=== PATIENT | male | born 1970 | race Caucasian/White ===

== ENCOUNTER → 2020-04-08 08:05 | Outpatient (CLI) | payer OTHER, SELFPAY ==
[2020-04-08 12:58] LABS: ALB/GLOB Ratio 1.2 RATIO (0.9-2.4); AST(SGOT) 15 U/L (15-37); Alanine Aminotransfer ALT/SGPT 45 U/L (16-61); Albumin, Serum 3.9 g/dL (3.2-5.0); Alkaline Phosphatase 76 U/L (45-117); Anion Gap 5 (5-15); BUN 11 mg/dL (7-18); BUN/Creat Ratio 12.4 RATIO (10-20); Calcium,Total 8.9 mg/dL (8.5-10.1); Chloride 105 mmol/L (98-107); Cholesterol 197 mg/dL (200); Creatinine, Serum 0.89 mg/dL (0.70-1.30); EST Glomerular Filtration Rate 96 mL/min (>60); Est Glom Filt Rate - Afr Amer 116 mL/min (>60); Globulin 3.3 g/dL (2.2-4.2); Glucose 88 mg/dL (74-106); High Density Lipoprotein 46 mg/dL; Potassium 4.1 mmol/L (3.5-5.1); Protein, Total 7.2 g/dL (6.4-8.2); Sodium Level 138 mmol/L (136-145); Triglycerides 174 mg/dL; Very Low Density Lipoprotein 35 mg/dL (5-40)
== END ==
PROVIDERS: Visit Provider Family Medicine
DX: I10 Essential (primary) hypertension (principal)
CPT/HCPCS: 36415; 80053; 80061

== ENCOUNTER 2020-04-22 07:45 | Day surgery (SDC) | payer OTHER, SELFPAY ==
[2020-04-08 10:26] VITALS: BMI 33.3
[2020-04-22] VITALS (12 sets, daily range): BP systolic 109–139; BP diastolic 72–101; PULSE 71–97; RESP 16; TEMP 36.3–36.7; O2SAT 92–98; BMI 32.2
[2020-04-22] MEDS: Lactated Ringers 1,000 ML 100 ML IV (08:32)
--- NOTE | 2020-04-22 08:53 | H&P.OPEN ---
History of Present Illness Date of Admission: 04/22/20 The patient is a 49 year old M presents for screening colonoscopy. Patient's uncle has have had various cancers x3 one did have colon cancer and all were less than age 50. Patient denies ever having a colonoscopy. Patient has daily bowel movements occasional blood small amount of bright red with wiping and occasionally in the toilet unsure if he has hemorrhoids, but does admit that they usually occur with hard stools. Patient states his stools are usually soft. Patient denies any chronic abdominal pain/nausea/vomiting/reflux. Denies any immediate family history of colon cancer. Past Medical/Surgical History - Planned Operation Planned Operative Procedure/s: COLONOSCOPY Date of Operative Procedure: 04/22/20 Permit Signed: Yes S.O.S: No Is This Patient Having a Total Joint: No - Previous Hospitalizations/Surgeries HX Hospitalizations: No HX of Surgeries: CYST REMOVED FROM UPPER NECK. CARLOS A MENISCUS Any Problems With Anesthesia: No You/Your Family Experience Fever (Hyperthermia) With Anes: No Cholinesterase deficiency: No - Cardiovascular Hx Chest Pain within Last 2 months: No Hx of Irregular Heartbeat and/or Afib: No Hx Heart Attack: No Hx Congestive Heart Failure: No Hx Rheumatic Fever: No Hx Hypertension: Yes - ON MED, STARTED LAST WEEK Hx Internal Defibrillator: No Hx Pacemaker: No Hx Cardiac Catheterization: No Hx Cardiac Surgery/Stents/Etc.: No Hx Stress Test: No HX Edema: No Hx Pain in Legs when Walking/Leg Cramps: No - Respiratory Chronic Cough: No HX of Shortness of Breath: No Hoarseness: No Hx Chronic Obstructive Pulmonary Disease (COPD): No Hx Asthma: No Hx Emphysema: No Hx Sleep Apnea: No Hx Oxygen Use at Home: No Hx Respiratory Tract Infection/Cold (presently): No Do You Snore Loudly (louder than talking or can be heard): Yes Do You Often Feel Tired/ Fatigued/ Sleepy Dring Daytime?: No Has Anyone Observed You Stop Breathing During Sleep?: No Result (for STOP score): Positive Hx Smoking: No Smoking Status: Never smoker - Gastrointestinal Hx Gastroesophageal Reflux: No Hx Gastrointestinal Disorders: No Hx Gastrointestinal Bleed: No Hx Ulcer: No Hx Hiatal Hernia: No Difficulty Chewing/Swallowing: No Recent Onset of Swallowing Problems: No Special diet followed at home: No Hx Unplanned Weight Loss of 20#: No HX Unplanned Weight Gain of 20#: No - Neurological Hx Seizures: No HX Syncope/Blackout Spells/Unconsciousness: No Hx CVA/Stroke: No Hx Transient Ischemic Attacks (TIA): No Hx Multiple Sclerosis: No Hx Parkinson's Disease: No Hx Head/Neck Injury: No Hx Headaches: No Hx Back Injury/Pain: No Recent Onset of Speech Difficulty: No Restless Legs: No Does patient have nerve stimulator: No - Blood Disorder Hx Leukemia: No Bleeding Tendencies: No Hx Deep Vein Thrombosis: No Hx High Cholesterol: Yes - DIET CONTROLLED Blood Transmitted Disease: No Hx Hepatitis: No Hx Cirrhosis: No Hx Anemia: No Hx Blood Disorders: No - Genitourinary Hx Renal Disease: No - Musculoskeletal Hx Arthritis: No Hx Rheumatoid Arthritis: No Hx Gout: No Recent Onset of an Orthopedic Problem: No - Endocrine Hx Diabetes: No Thyroid Disease: No Hx Steroid Therapy: No - Psycho/Social Hx Substance Use: No Hx Alcohol Use: No Hx Anxiety: No Hx Depression: No Mental Illness: No Hx Dementia: No - Miscellaneous Hx Cancer: No Recent Exposure to Contagious Disease: No Active MRSA: No Hx of C-Diff: No Any Loose Teeth: No Allergies No Known Allergies Allergy (Verified 04/14/20 14:03) - Discharge Is Pt Admitted From a Senior Living, or a Detention: No Who Could Help: - Physical Exam Vitals/I&O's: Vital Signs Temp Pulse Resp BP Pulse Ox 97.3 F L 94 16 139/101 H 98 04/22/20 08:24 04/22/20 08:24 04/22/20 08:24 04/22/20 08:24 04/22/20 08:24 Oxygen Delivery Method Room Air Weight: 224 lb 13.944 oz Body Mass Index (BMI) 32.2 General: Alert, Oriented x3, Cooperative, No apparent distress HEENT: Atraumatic Lungs: Normal air movement Cardiovascular: Regular rate Abdomen: Soft, Non Tender, Non-Distended Extremities: No clubbing, No cyanosis, No edema Neurological: Cranial nerves II-XII grossly intact Psych/Mental Status: Normal Affect Microbiology Past 72 Hours 04/21/20 11:29 Interface Orders SARS-CoV-2 Antigen (Rapid) - Final Current Medications Lactated Ringer's () 1,000 mls @ 100 mls/hr IV .Q10H ERNESTINE Last Admin: 04/22/20 08:32 Dose: 100 mls/hr Documented by: Assessment/Plan 49-year-old male for screening for colon cancer Procedure Criteria Procedure Type: Elective COVID Risk Discussion: The surgeon/proceduralist and patient have discussed in detail the risk of exposure to and/or potential harm posed by the COVID-19 virus with having a surgery/procedure at this time versus the risk of delaying the surgery/procedure. It is not possible to know either the risk of delaying the surgery or procedure or chance of getting an infection with perfect accuracy, but a joint decision was made between the patient and the surgeon/proceduralist to proceed at this time with the scheduled surgery/procedure as indicated on the consent form. Surgery Risks - Colonoscopy I discussed with the patient the risks of the procedure: Yes Risks Include but are not Limited To: Risks include but are not limited to: Bleeding, perforation requiring further surgery, inability to complete colonoscopy requiring barium enema.
--- NOTE | 2020-04-22 09:00 | COLBX_PTH ---
PATIENT: ALO BALBUENA LOC: EN U#:[id number] AGE/SX: 49/M ROOM: RE04/22/[address]: Dr. Eve Elmore MD : 1970 BED: DIS: 04/22/2020 SPEC #: [id number] RECD: 04/22/20 11:19 STATUS: ISABELL PRADIP #: [id number] HAYLEY: 04/22/20 09:[address]: Eve Elmore DEPT: SURGICAL PATHOLOGY RECD BY: Susana Chapa ENTERED: 04/22/20 12:00 SP TYPE: COLON BX OTHR DR: Dr. Shay Clark, DO Tissues: Rectum, NOS Procedures: Surgery Specimen Level IV HEADER OPERATION: Colonoscopy - open access (MAC) PRE-OP DIAGNOSIS: Screening colonoscopy TISSUE SUBMITTED: Rectal polyp MICROSCOPIC DIAGNOSIS Rectal polyp, biopsy: Fragments of tubular adenoma. AM:robert 04/23/2020 MICROSCOPIC DESCRIPTION Slides are reviewed. GROSS DESCRIPTION Received in fixative is one container labeled with the patient's name and designated rectal polyp. The specimen consists of multiple irregular fragments of light johnson soft tissue that in aggregate measure 1.2 x 1 x 0.1 cm. The specimen is totally submitted in one cassette. / AM:robert 04/22/20 TC:5 CPT: 06954
--- NOTE | 2020-04-22 09:36 | OP.COLON_ITS ---
Patient Name: Hosea Walker Procedure Date: 04/22/2020 8:43 AM Date of : 1970 Age: 49 Procedure: Colonoscopy Indications: Screening for colorectal malignant neoplasm Providers: Eve Elmore MD Referring MD: Eve Elmore MD Medicines: Monitored Anesthesia Care Patient Profile: This is a 49 year old male. Last Colonoscopy: none. The patient's first colonoscopy is today. Complications: No immediate complications. Procedure: Pre-Anesthesia Assessment: - Prior to the procedure, a History and Physical was performed, and patient medications and allergies were reviewed. The patient's tolerance of previous anesthesia was also reviewed. The risks and benefits of the procedure and the sedation options and risks were discussed with the patient. All questions were answered, and informed consent was obtained. Prior Anticoagulants: The patient has taken no previous anticoagulant or antiplatelet agents. ASA Grade Assessment: Per anesthesia. After reviewing the risks and benefits, the patient was deemed in satisfactory condition to undergo the procedure. After I obtained informed consent, the scope was passed under direct vision. Throughout the procedure, the patient's blood pressure, pulse, and oxygen saturations were monitored continuously. The colonoscope was introduced through the anus and advanced to the cecum, identified by the appendiceal orifice, ileocecal valve and palpation. The colonoscopy was performed without difficulty. The patient tolerated the procedure well. The quality of the bowel preparation was good. Scope In: 9:04:12 AM Scope Out: 9:25:50 AM Total Procedure Duration Time 0 hours 21 minutes 38 seconds Findings: Hemorrhoids were found on perianal exam. A 5 mm polyp was found in the rectum. The polyp was semi-pedunculated. The polyp was removed with a hot snare. Resection and retrieval were complete. Non-bleeding internal hemorrhoids were found. The hemorrhoids were Grade I (internal hemorrhoids that do not prolapse). A few small-mouthed diverticula were found in the sigmoid colon. Impression: - Hemorrhoids found on perianal exam. - One 5 mm polyp in the rectum, removed with a hot snare. Resected and retrieved. - Non-bleeding internal hemorrhoids. - Diverticulosis in the sigmoid colon. Recommendation: - Discharge patient to home. - High fiber diet. - Continue present medications. - Await pathology results. - Repeat colonoscopy in 3 - 5 years for surveillance based on pathology results. Procedure Code(s): --- Professional --- 99425, PT, Colonoscopy, flexible; with removal of tumor(s), polyp(s), or other lesion(s) by snare technique Diagnosis Code(s): --- Professional --- Z12.11, Encounter for screening for malignant neoplasm of colon K64.0, First degree hemorrhoids K62.1, Rectal polyp K57.30, Diverticulosis of large intestine without perforation or abscess without bleeding CPT copyright 2017 [employer]. All rights reserved. The codes documented in this report are preliminary and upon global consumer sector vice president review may be revised to meet current compliance requirements. MD Eve Lomeli MD 04/22/2020 9:35:55 AM This report has been signed electronically. Number of Addenda: 0 Note Initiated On: 04/22/2020 8:43 AM
--- NOTE | 2020-04-22 09:36 | OP.CCLET_ITS ---
04/22/2020 Shay Clark Re : Colonoscopy procedure for Hosea Walker Dear Dr. Clark This procedure was performed on Wednesday, April 22, 2020. My impressions and recommendations are as follows: Impressions : - Hemorrhoids found on perianal exam. - One 5 mm polyp in the rectum, removed with a hot snare. Resected and retrieved. - Non-bleeding internal hemorrhoids. - Diverticulosis in the sigmoid colon. Recommendations : - Discharge patient to home. - High fiber diet. - Continue present medications. - Await pathology results. - Repeat colonoscopy in 3 - 5 years for surveillance based on pathology results. My findings are described in the full procedure note, which is enclosed. If I can be of further assistance, please feel free to contact me at Doctor phone number(s): , Work: . Sincerely, MD Eve Lomeli MD 04/22/2020 9:35:55 AM This report has been signed electronically.
[2020-04-22] MEDS: BENZOCAINE/MENTHOL 1 LOZENGE MUCOUS MEM (10:48)
== END 2020-04-22 11:13 | disposition home or self-care (01) ==
LOC: EN 07:45 → AC 07:45
PROVIDERS: PCP Family Medicine; Referring Provider Family Medicine; Visit Provider Surgery
PROC: 0DJD8ZZ Inspection of Lower Intestinal Tract, Via Natural or Artificial Opening Endoscopic (ICD-10-PCS; CPT 45378; principal; 2020-04-22 08:55)
DX: Z12.11 Encounter for screening for malignant neoplasm of colon (principal); D12.8 Benign neoplasm of rectum; K57.30 Diverticulosis of large intestine without perforation or abscess without bleeding; K64.0 First degree hemorrhoids; I10 Essential (primary) hypertension; Z79.899 Other long term (current) drug therapy; Z20.822 Contact with and (suspected) exposure to COVID-19
CPT/HCPCS: 45380; 87426; 88305; C9803; J7120; J2405

== ENCOUNTER 2020-04-22 13:51 | Observation (INO) | payer OTHER, SELFPAY ==
[2020-04-22 08:24] VITALS: BMI 32.2
[2020-04-22 13:53] VITALS: BP 155/93; PULSE 122; RESP 18; TEMP 37.1; O2SAT 96; BMI 32.2
--- NOTE | 2020-04-22 14:06 | ED.DCSUM_ITS ---
History of Present Illness Chief Complaint: Other, Pain/Inj Informant: Patient Narrative: Patient is a 49-year-old male with a past medical history of hypertension who presents emergency department for throat pain and swelling. He had a colonoscopy performed earlier today. Apparently they suctioned out his throat and that the back of his throat. He has been having pain since. He describes very severe pain when trying to swallow and has not been able to eat or drink. He has not tried taking anything for this as he cannot swallow anything. He has been having a lot of mucus he is bringing up. He has been spitting his secretions out.. He denies any shortness of breath. No chest pain. No fevers or chills. He denies any abdominal pain or nausea/vomiting. Past Medical History - Allergies and Home Meds Allergies/Adverse Reactions: Allergies No Known Allergies Allergy (Verified 04/22/20 13:52) Prior records reviewed: Yes Past Medical History: - - Hypertension Surgical History: noncontributory Smoking Status: Never smoker Review of Systems All systems negative except as indicated General: Denies: Chills, Fever, Sweats Eyes: Denies: Visual changes - bilaterally, Diplopia ENT: Reports: Sore throat. Denies: Rhinorrhea Cardiovascular: Denies: Chest pain, Palpitations Respiratory: Denies: Dyspnea, Cough, Dyspnea on exertion Gastrointestinal: Denies: Abdominal pain, Nausea, Vomiting Musculoskeletal: Denies: Back pain, Extremity Pain Skin: Denies: Rash, Wounds Neurological: Denies: Headache, Weakness, Numbness Allergy: Reports: Swelling of the mouth. Denies: Swelling of the tongue Physical Exam Vital Signs/Narrative: Vital Signs Temp Pulse Resp BP Pulse Ox 04/22/20 13:53 98.7 F 122 H 18 155/93 H 96 Inital Vital Signs reviewed: Yes General: Well nourished, Well developed, No Acute Distress, - - He does have a raspy voice but nonmuffled. Head: Normocephalic, Atraumatic Eyes: Perrl, EOMI ENT: Moist mucous membranes, No rhinorrhea, - - There is some swelling to posterior oropharynx. Uvula is midline. Some mild petechiae around that area. No active bleeding. No stridor present. No Trace's present. Neck: Supple, Nontender, No lymphadenopathy Cardiovascular: Regular rate, Regular rhythm, No murmurs Respiratory: No distress, CTA bilaterally, Chest nontender Abdomen: Soft, Nontender, Nondistended, Normal bowel sounds Back: Nontender, Normal Inspection Extremities: Nontender, No edema Skin: Normal color, No rash Neurological: Alert, Oriented x3, Cranial nerves II-XII grossly intact, Normal Strength, Normal Sensation Psychological: Normal affect, Normal Mood Diagnostic/Tx/Re-eval - Medical Decision Making Patient presents to the emergency department for sore throat after procedure this morning. I believe that he has a traumatic uveitis. Was sent in for Decadron treatment. Did discuss this with the patient and will try this. He is given a GI cocktail for the numbing effect. He is in no respiratory distress. No airway compromise. Patient spitting his saliva into emesis bag. Physical exam is benign with just mild swelling of the posterior pharynx. Patient refused to swallow a GI cocktail so Chloraseptic spray was used. He was not able to swallow the Decadron so this was given IV. Patient still unable to swallow despite treatment so a CT scan of the soft tissues of the neck were obtained. This does show edema but no active hemorrhage or large hematoma. Patient has been tachycardic which could relate to his dehydration with a bowel prep earlier and unable to drink now. He has been bolused 2 L normal saline and his heart rate has been fluid responsive. Will bring him into the hospital as he still unable to tolerate orally. His general surgeon was contacted who was willing to accept the patient. He has been stable throughout ED stay. He is agreeable with this plan. ED Disposition - Plan for ED Patient: Disposition: Acute Care Hospital [facility] Diagnosis: Odynophagia, Uvulitis
[2020-04-22 14:13] VITALS: BP 156/87; PULSE 115; RESP 16; O2SAT 98
[2020-04-22] MEDS: Phenol/Sodium Phenolate 180ML 5 SPRAY MM (14:28)
--- NOTE | 2020-04-22 14:56 | ED.RN ---
medication for patient have been ordered by mouth. pt continues to refuse to swallow or take oral medications. dr Rasmussen informed. no further orders at this time. chely melgar, rn [phone]
--- NOTE | 2020-04-22 15:01 | CT_ITS ---
STUDY: CT SOFT TISSUE NECK WITH CONTRAST REASON FOR EXAM: Male, 49 years old. during colonoscopy pt had trauma from rapid suction, concern for uvula injury, painful swallowing, spitting secretions RADIATION DOSAGE (If Supplied By Facility): CTDIvol = ( 18.66 ) mGy, DLP = ( 629.57 ) mGycm TECHNIQUE: The patient was scanned in a multi-detector CT scanner. High resolution transaxial imaging was performed following intravenous administration of IV 75mL Isovue-370. Sagittal and coronal images were reconstructed. Individualized dose optimization techniques were used for this CT. COMPARISON: None. FINDINGS: Normal bilateral parotid glands. Normal bilateral supplies packer spaces. Normal bilateral parapharyngeal spaces. Normal bilateral carotid spaces. Normal bilateral submandibular glands and spaces. There is irregularity of the torus tubarius and blunting of the left fossa of Rosenmuller. This may be due to secretions, recent trauma, or neoplasm. Nasopharynx is otherwise unremarkable. Normal retropharyngeal space. Normal perivertebral space. Normal visualized bilateral faucial tonsils. The visualized tongue, tongue base and oropharynx are normal. Specifically, the uvula is unremarkable. The visualized cervical lymph nodes (levels I-) are within normal size limits, and maintain normal morphology. There is no demonstrated solid or cystic mass lesion. There is no abnormal contrast enhancement. There is edema in the left lateral wall of the hypopharynx involving the posterolateral epiglottis. The pre-epiglottic and paraglottic adipose spaces are normal. Normal visualized bilateral piriform sinuses, aryepiglottic folds, vocal cords, and arytenoid-cricoid articulations. Normal subglottic trachea. Normal bilateral lobes of the thyroid gland. Normal visualized pulmonary apices. Trace mucosal thickening in the left maxillary sinus. Normal visualized cervical spine. CT/Soft Tissue Neck WITH Contrast IMPRESSION: 1. Asymmetry of the left torus tubarius and blunting of the fossa of Rosenmuller. Differential considerations noted above. 2. Edema of the left hypopharynx, possibly related to traumatic intubation or suction. Electronically Signed: Arlin Layton MD at 19:02 EST Tel , Service support ,
[2020-04-22 15:13] VITALS: BP 146/95; PULSE 116; RESP 16; O2SAT 96
[2020-04-22] MEDS: dexAMETHasone 10 MG/ML Vial 8 MG IV (16:17)
[2020-04-22 16:56] LABS: Mean Platelet Vol. 9.6 fl (6.2-12.0); NRBC Flagged by Analyzer 0 % (0-5)
[2020-04-22 17:20] LABS: Anion Gap 5 (5-15); BUN 9 mg/dL (7-18); BUN/Creat Ratio 9.1 RATIO (10-20); Calcium,Total 8.8 mg/dL (8.5-10.1); Chloride 105 mmol/L (98-107); Creatinine, Serum 0.99 mg/dL (0.70-1.30); EST Glomerular Filtration Rate 85 mL/min (>60); Est Glom Filt Rate - Afr Amer 103 mL/min (>60); Estimated Creatinine Clearance 92.17 ml/min; Glucose 107 mg/dL (74-106); Sodium Level 137 mmol/L (136-145)
[2020-04-22 17:53] LABS: Hematocrit 48.7 % (40-54); Hemoglobin 16.6 g/dL (13.0-16.5); Mean Corp Hgb Conc 34.1 g/dL (32-36); Mean Corpuscular Volume 90.9 fL (80-94); RBC Distribution Width CV 11.9 % (11.6-14.6); RBC Distribution Width SD 39.7 fl (35.1-43.9); Red Blood Count 5.36 M/mm3 (4.6-6.2)
--- NOTE | 2020-04-22 17:53 | RAD_ITS ---
STUDY: X-RAY CHEST REASON FOR EXAM: Male, 49 years old. PT REPORT HAVING A LOWER GI SCOPE DONE EARLIER TODAY. HAVING INCREASING DIFFICULTY SWALLOWING. TECHNIQUE: Single AP portable view of the chest. COMPARISON: None. FINDINGS: Low lung volumes. The lungs are clear. There is no demonstrated pleural abnormality. Normal size heart. Normal mediastinum and stephanie. Normal visualized pulmonary arteries. Normal visualized aortic arch and descending thoracic aorta. Normal visualized thoracic spine. Normal visualized ribs, clavicles, and shoulders. There is no demonstrated abnormality of the visualized soft tissue structures of the upper abdomen. RAD/Chest 1 View (Portable) IMPRESSION: Normal x-ray examination of the chest. Electronically Signed: Arlin Layton MD at 18:29 EST Tel , Service support ,
[2020-04-22 17:54] LABS: Basophil% 0.3 % (0-1); Eosinophils% 2.1 % (0-5); Lymphocyte % 4.1 % (19-41); Monocyte% 5.1 % (0-10); Neutrophil % 88.1 % (47-70); Platelet Count 288 K/mm3 (150-450)
[2020-04-22 17:55] LABS: Absolute Lymphocyte Count 0.86 X10^3/uL (0.83-4.51); Absolute Neutrophil Count 18.5 X10^3/uL (2.0-7.7); Basophil# 0.06 X10^3/uL; Eosinophil# 0.44 X10^3/uL; Lymphocyte # 0.86 X10^3/ul (4.0); Monocyte# 1.07 X10^3/uL
[2020-04-22 18:18] VITALS: BP 148/96; PULSE 122; RESP 20; O2SAT 94
--- NOTE | 2020-04-22 19:40 | HP.PCM_ITS ---
History of Present Illness Date of Admission: 04/22/20 The patient is a 49 year old M presented to the ER due to dysphagia. Pt had a colonoscopy this AM and did have his mouth suctioned during the procedure due to coughing. After the case, pt c/o dysphagia but was able to swallow liquids when he left-but exam did reveal trauma to posterior pharynx and swelling of uvula. However, pt called office as he states he was unable to swallow liquids or saliva, so he was asked to go to ER. Pt was initially tachy but did respond to fluids as he was likely dehydrated from colon prep. CT neck show some edema in left posterior pharynx. Pt did get decadron 8mg IV in ER; patient has not had any signs of airway compromise. Past Medical History Past Medical History (Chronic Problems): Chronic Problems (Last Reviewed 04/08/20 @ 11:[address] Shay Clark DO) Hypertension (Chronic) Allergies No Known Allergies Allergy (Verified 04/22/20 13:52) Home Medications: Ambulatory Orders Medication Instructions Recorded ascorbate calcium (vitamin C) 500 500 mg PO DAILY 04/08/20 mg tablet multivitamin 1 tab PO DAILY 04/08/20 Lisinopril 20 mg PO DAILY 04/22/20 Surgical History: Surgical History (Last Reviewed 04/08/20 @ 11:[address] Shay Clark DO) H/O knee surgery Z98.890 Surgical History: noncontributory Smoking Status: Never smoker Tobacco Use: Non-smoker VTE Information - Inpt Only VTE Present on Admission: Yes VTE Mechan Device Prophylaxis: SCD's Patient Problems: Active and Suspected Problems (Last Reviewed 04/08/20 @ 11:[address] Shay Clark DO) Odynophagia (Acute) Uvulitis (Acute) - Physical Exam Vitals/I&O's: Vital Signs Temp Pulse Resp BP Pulse Ox 98.7 F 122 H 20 H 148/96 H 94 04/22/20 13:53 04/22/20 18:18 04/22/20 18:18 04/22/20 18:18 04/22/20 18:18 Oxygen Delivery Method Room Air Weight: 224 lb 10.417 oz Body Mass Index (BMI) 32.2 General: Alert, Oriented x3, Cooperative, No apparent distress Oral: - - Edema to the uvula and some erythema to the posterior pharynx no signs of any airway compromise Lungs: Normal air movement Cardiovascular: Regular rate Abdomen: Soft, Non Tender, Non-Distended Extremities: No clubbing, No cyanosis, No edema Neurological: Cranial nerves II-XII grossly intact Psych/Mental Status: Normal Affect Laboratory Results 04/22/20 15:42: WBC Cancelled, Corrected WBC Cancelled, RBC Cancelled, Hgb Cancelled, Hct Cancelled, MCV Cancelled, MCH Cancelled, MCHC Cancelled, RDW Std Deviation Cancelled, RDW Coeff of Cameron Cancelled, Plt Count Cancelled, MPV Cancelled, Immature Gran % (Auto) Cancelled, Neut % (Auto) Cancelled, Lymph % (Auto) Cancelled, [place] % (Auto) Cancelled, Eos % (Auto) Cancelled, Baso % (Auto) Cancelled, Absolute Neuts (auto) Cancelled, Absolute Lymphs (auto) Cancelled, Total Counted Cancelled, Neutrophils % (Manual) Cancelled, Band Neutrophils % Cancelled, Lymphocytes % (Manual) Cancelled, Monocytes % (Manual) Cancelled, Eosinophils % (Manual) Cancelled, Basophils % (Manual) Cancelled, Metamyelocytes % Cancelled, Myelocytes % Cancelled, Promyelocytes % Cancelled, Blast Cells % Cancelled, Plasma Cell % (Manual) Cancelled, Other Cells % Cancelled, Nucleated RBC % Cancelled, Nucleated RBCs/100 WBC Cancelled, Differential Comment Cancelled, Diff Path Review Cancelled, Hypersegmented Neuts Cancelled, Atypical Lymphocytes Cancelled, Reactive Lymphocytes Cancelled, Smudge Cells Cancelled, Toxic Granulation Cancelled, Toxic Vacuolation Cancelled, Dohle Bodies Cancelled, [place] Cancelled, Platelet Estimate Cancelled, Plt Morphology Comment Cancelled, RBC Morphology Cancelled, Polychromasia Cancelled, Hypochromasia Cancelled, Poikilocytosis Cancelled, Basophilic Stippling Cancelled, Anisocytosis Cancelled, Microcytosis Cancelled, Macrocytosis Cancelled, Spherocytes Cancelled, Sickle Cells Cancelled, Target Cells Cancelled, Tear Drop Cells Cancelled, Ovalocytes Cancelled, Stomatocytes Cancelled, [place] Bodies Cancelled, Valentina Cells Cancelled, Bite Cells Cancelled, Crenated Cell Cancelled, Acanthocytes (Spur) Cancelled, Rouleaux Cancelled, Schistocytes Cancelled 04/22/20 15:42: Sodium Cancelled, Potassium Cancelled, Chloride Cancelled, Carbon Dioxide Cancelled, Anion Gap Cancelled, BUN Cancelled, Creatinine Cancelled, Estim Creat Clear Calc Cancelled, Est GFR (MDRD) Af Amer Cancelled, Est GFR (MDRD) Non-Af Cancelled, BUN/Creatinine Ratio Cancelled, Glucose Cancelled, Calcium Cancelled 04/22/20 16:45: Sodium 137, Potassium 4.0, Chloride 105, Carbon Dioxide 27.0, Anion Gap 5, BUN 9, Creatinine 0.99, Estim Creat Clear Calc 92.17, Est GFR (MDRD) Af Amer 103, Est GFR (MDRD) Non-Af 85, BUN/Creatinine Ratio 9.1 L, Glucose 107 H, Calcium 8.8 04/22/20 16:45: WBC 21.0 H, RBC 5.36, Hgb 16.6 H, Hct 48.7, MCV 90.9, MCH 31.0, MCHC 34.1, RDW Std Deviation 39.7, RDW Coeff of [place] 11.9, Plt Count 288, MPV 9.6, Immature Gran % (Auto) 0.300, Neut % (Auto) 88.1 H, Lymph % (Auto) 4.1 L, [place] % (Auto) 5.1, Eos % (Auto) 2.1, Baso % (Auto) 0.3, Absolute Neuts (auto) 18.5 H, Absolute Lymphs (auto) 0.86, Nucleated RBC % 0 Current Medications Sodium Chloride () 1,000 mls @ 999 mls/hr IV .Q1H1M ONE Stop: 04/22/20 20:27 Phenol/Menthol (Phenol/Sodium Phenolate 180ml) 5 spray MM Q2H PRN PRN PRN Reason: Pain/Inflammation Last Admin: 04/22/20 14:28 Dose: 5 spray Documented by: Assessment/Plan All Active Problems (Last Reviewed 04/08/20 @ 11:[address] Shay Clark, DO) Odynophagia (Acute) Uvulitis (Acute) 49 y/o M with dysphagia 2/2 traumatic uvulitis 1. will continue IVF 2. clears as tolerated 3. try IV pepcid, cepacol 4. leukocytosis- blood drawn after IV decadron was given--could be due to steriods. Eve Elmore M.D. Pager: [phone] [facility] [address] [place] [address], [address] [place] [address] Office: [phone]
[2020-04-22] MEDS: Morphine 4 MG/ML Syringe IV (19:51)
[2020-04-22] MEDS: 0.9% Normal Saline 1,000 ML 999 ML IV (19:51)
[2020-04-22 19:53] VITALS: BP 131/72; PULSE 126; RESP 18; TEMP 37; O2SAT 92
[2020-04-22 19:59] VITALS: BMI 32.2
[2020-04-22 21:09] VITALS: BMI 32.0
[2020-04-22 21:26] VITALS: BP 135/91; PULSE 105; RESP 20; TEMP 36.9; O2SAT 94
[2020-04-22] MEDS: Lactated Ringers 1,000 ML 999 ML IV (21:37)
[2020-04-22] MEDS: Famotidine 200 MG/20 ML MDV 20 MG in 0.9% Normal Saline (Pres. free 8 ML 300 MG IV (22:12)
[2020-04-22] MEDS: 0.9% Saline Lock 10 ML Syringe IV (22:13)
[2020-04-22] MEDS: Lactated Ringers 1,000 ML 150 ML IV (22:52)
[2020-04-23 01:26] VITALS: BP 100/56; PULSE 78; RESP 16; TEMP 36.7; O2SAT 93
[2020-04-23] MEDS: Phenol/Sodium Phenolate 180ML 3 SPRAY MM (05:30)
[2020-04-23] MEDS: Lactated Ringers 1,000 ML 150 ML IV (05:33)
[2020-04-23 07:06] VITALS: BP 107/75; PULSE 90; RESP 16; TEMP 36.8; O2SAT 94
--- NOTE | 2020-04-23 08:30 | PN.SURG_ITS ---
Patient Problems: Active and Suspected Problems (Last Reviewed 04/08/20 @ 11:[address] Shay Clark, DO) Odynophagia (Acute) Uvulitis (Acute) Subjective: Patient states he is able to swallow this morning able to drink liquids with no issue just feels like a sore throat. Patient meant yesterday may have had some anxiety along with the uveitis. - Physical Exam Vitals/I&O's: Vital Signs Temp Pulse Resp BP Pulse Ox 98.3 F 90 16 107/75 94 04/23/20 07:06 04/23/20 07:06 04/23/20 07:06 04/23/20 07:06 04/23/20 07:06 Oxygen Delivery Method Room Air Weight: 223 lb 5.252 oz Body Mass Index (BMI) 32.0 Intake and Output for Last 24 Hours 04/21/20 04/22/20 04/23/20 23:59 23:59 23:59 Intake Total 2009 1000 / 1000 Balance 2009 1000 / 1000 General: Alert, Oriented x3, Cooperative, No apparent distress Oral: - - Start some erythema to the posterior pharynx Abdomen: Soft, Non Tender, Non-Distended Laboratory Results 04/22/20 15:42: WBC Cancelled, Corrected WBC Cancelled, RBC Cancelled, Hgb Cancelled, Hct Cancelled, MCV Cancelled, MCH Cancelled, MCHC Cancelled, RDW Std Deviation Cancelled, RDW Coeff of Cameron Cancelled, Plt Count Cancelled, MPV Cancelled, Immature Gran % (Auto) Cancelled, Neut % (Auto) Cancelled, Lymph % (Auto) Cancelled, [place] % (Auto) Cancelled, Eos % (Auto) Cancelled, Baso % (Auto) Cancelled, Absolute Neuts (auto) Cancelled, Absolute Lymphs (auto) Cancelled, Total Counted Cancelled, Neutrophils % (Manual) Cancelled, Band Neutrophils % Cancelled, Lymphocytes % (Manual) Cancelled, Monocytes % (Manual) Cancelled, Eosinophils % (Manual) Cancelled, Basophils % (Manual) Cancelled, Metamyelocytes % Cancelled, Myelocytes % Cancelled, Promyelocytes % Cancelled, Blast Cells % Cancelled, Plasma Cell % (Manual) Cancelled, Other Cells % Cancelled, Nucleated RBC % Cancelled, Nucleated RBCs/100 WBC Cancelled, Differential Comment Cancelled, Diff Path Review Cancelled, Hypersegmented Neuts Cancelled, Atypical Lymphocytes Cancelled, Reactive Lymphocytes Cancelled, Smudge Cells Cancelled, Toxic Granulation Cancelled, Toxic Vacuolation Cancelled, Dohle Bodies Cancelled, [place] Cancelled, Platelet Estimate Cancelled, Plt Morphology Com ment Cancelled, RBC Morphology Cancelled, Polychromasia Cancelled, Hypochromasia Cancelled, Poikilocytosis Cancelled, Basophilic Stippling Cancelled, Anisocytosis Cancelled, Microcytosis Cancelled, Macrocytosis Cancelled, Spherocytes Cancelled, Sickle Cells Cancelled, Target Cells Cancelled, Tear Drop Cells Cancelled, Ovalocytes Cancelled, Stomatocytes Cancelled, [place] Bodies Cancelled, Valentina Cells Cancelled, Bite Cells Cancelled, Crenated Cell Cancelled, Acanthocytes (Spur) Cancelled, Rouleaux Cancelled, Schistocytes Cancelled 04/22/20 15:42: Sodium Cancelled, Potassium Cancelled, Chloride Cancelled, Carbon Dioxide Cancelled, Anion Gap Cancelled, BUN Cancelled, Creatinine Cancelled, Estim Creat Clear Calc Cancelled, Est GFR (MDRD) Af Amer Cancelled, Est GFR (MDRD) Non-Af Cancelled, BUN/Creatinine Ratio Cancelled, Glucose Cancelled, Calcium Cancelled 04/22/20 16:45: Sodium 137, Potassium 4.0, Chloride 105, Carbon Dioxide 27.0, Anion Gap 5, BUN 9, Creatinine 0.99, Estim Creat Clear Calc 92.17, Est GFR (MDRD) Af Amer 103, Est GFR (MDRD) Non-Af 85, BUN/Creatinine Ratio 9.1 L, Glucose 107 H, Calcium 8.8 04/22/20 16:45: WBC 21.0 H, RBC 5.36, Hgb 16.6 H, Hct 48.7, MCV 90.9, MCH 31.0, MCHC 34.1, RDW Std Deviation 39.7, RDW Coeff of Cameron 11.9, Plt Count 288, MPV 9.6, Immature Gran % (Auto) 0.300, Neut % (Auto) 88.1 H, Lymph % (Auto) 4.1 L, [place] % (Auto) 5.1, Eos % (Auto) 2.1, Baso % (Auto) 0.3, Absolute Neuts (auto) 18.5 H, Absolute Lymphs (auto) 0.86, Nucleated RBC % 0 Current Medications Famotidine 20 mg/ Sodium (Chloride) 10 mls @ 300 mls/hr IV Q12 ERNESTINE Last Infusion: 04/22/20 22:19 Dose: Infused Documented by: Lactated Ringer's () 1,000 mls @ 150 mls/hr IV .[id number] ERNESTINE Last Admin: 04/23/20 05:33 Dose: 150 mls/hr Documented by: Ketorolac Tromethamine (Ketorolac 15 Mg/Ml Vial) 15 mg IV Q6H PRN PRN PRN Reason: Pain Score 1-10 Phenol/Menthol (Phenol/Sodium Phenolate 180ml) 3 spray MM Q6H PRN PRN PRN Reason: Sore throat Last Admin: 04/23/20 05:30 Dose: 3 spray Documented by: Sodium Chloride (0.9% Saline Lock 10 Ml Syringe) 10 - 40 ml IV UD PRN PRN Reason: SALINE FLUSH Last Admin: 04/22/20 22:13 Dose: 10 ml Documented by: Throat Lozenges (Benzocaine/Menthol 1 Lozenge) 1 - 2 lozenge MUCOUS MEM Q2H PRN PRN PRN Reason: SORE THROAT Medical Necessity - Tobacco Use Smoking Status: Never smoker Tobacco Use: Non-smoker Assessment/Plan All Active Problems (Last Reviewed 04/08/20 @ 11:[address] Shay Clark, DO) Odynophagia (Acute) Uvulitis (Acute) 49 y/o M with dysphagia 2/2 traumatic uvulitis 1. Patient swelling is improved. Okay to advance diet and DC home. Eve Elmore M.D. Pager: [phone] [facility] [address] [place] [address], [facility], [address] [place] [address] Office: [phone]
--- NOTE | 2020-04-23 08:37 | DCINST_ITS ---
Discharge Diet: Soft diet - advance as christa Allergies/Adverse Reactions: Allergies No Known Allergies Allergy (Verified 04/22/20 13:52) Medications to take at Discharge ascorbate calcium (vitamin C) 500 mg tablet 500 mg PO DAILY 04/08/20 multivitamin 1 tab PO DAILY 04/08/20 Lisinopril 20 mg PO DAILY 04/22/20 Primary Care Physician: Shay Clark DO [Primary Care Provider] - Test Results: Test results from this visit will be discussed in further detail at your follow- up appointment, if applicable. Proposed Discharge Date: 04/23/20
[2020-04-23 08:45] VITALS: PULSE 88
[2020-04-23] MEDS: 0.9% Saline Lock 10 ML Syringe IV ×2 (08:45→10:22)
--- NOTE | 2020-04-23 10:09 | PHA.DC.MR ---
Pharmacy Service has performed discharge medication reconciliation for this patient. The patient's discharge medication list was reviewed for discrepancies and discrepancies were resolved. Home Medications ascorbate calcium (vitamin C) 500 mg tablet 500 mg PO DAILY 04/08/20 multivitamin 1 tab PO DAILY 04/08/20 Lisinopril 20 mg PO DAILY 04/22/20
[2020-04-23] MEDS: Famotidine 200 MG/20 ML MDV 20 MG in 0.9% Normal Saline (Pres. free 8 ML 300 MG IV (10:20)
== END 2020-04-23 10:53 | disposition home or self-care (01) ==
LOC: ED 14:47 → MS3 20:32
PROVIDERS: Admitting Provider Surgery; Emergency Provider Emergency Medicine; PCP Family Medicine; Visit Provider Surgery
DX: K12.2 Cellulitis and abscess of mouth (principal); I10 Essential (primary) hypertension; Z79.899 Other long term (current) drug therapy
CPT/HCPCS: 36415; 70491; 71045; 80048; 85025; 96361; 96374; 96375; 96376; 99218; 99285; J7030; J7120; Q9967; A4216; G0378; J3490

== ENCOUNTER → 2021-01-18 14:02 | Outpatient (CLI) | payer OTHER, SELFPAY ==
--- NOTE | 2021-01-18 14:05 | RAD_ITS ---
STUDY: X-RAY CHEST REASON FOR EXAM: Male, 50 years old. chest pain, dyspnea TECHNIQUE: PA and lateral views of the chest. COMPARISON: April 22, 2020. FINDINGS: No focal infiltrates or effusions. No pneumothorax. Normal size heart. Normal mediastinum and stephanie. Normal visualized pulmonary arteries. Normal visualized aortic arch and descending thoracic aorta. Normal visualized thoracic spine. Normal visualized ribs, clavicles, and shoulders. There is no demonstrated abnormality of the visualized soft tissue structures of the upper abdomen. RAD/Chest PA and Lateral IMPRESSION: Normal x-ray examination of the chest. Electronically Signed: Brian Matais MD at 3:06 EDT , Service support ,
--- NOTE | 2021-01-18 14:17 | EKG12_ITS ---
Test Reason : CP Blood Pressure : / mmHG Vent. Rate : 078 BPM Atrial Rate : 078 BPM P-R Int : 140 ms QRS Dur : 084 ms QT Int : 366 ms P-R-T Axes : 024 -03 -04 degrees QTc Int : 417 ms Normal sinus rhythm Voltage criteria for left ventricular hypertrophy Inferior infarct , age undetermined Abnormal ECG Confirmed by LUPE CHAVEZ, DEBI ([id number]), assistant film editor SANJAY GARCÍA ([id number]) on 01/19/2021 11:05:33 AM Referred By: Lilliana Pickett Confirmed By:DEBI ANDRADE MD
== END ==
PROVIDERS: PCP Family Medicine; Referring Provider Physician Assistant; Visit Provider Physician Assistant
DX: R06.00 Dyspnea, unspecified (principal); R07.9 Chest pain, unspecified
CPT/HCPCS: 71046; 93005

== ENCOUNTER → 2021-01-28 11:42 | Outpatient (CLI) | payer OTHER, SELFPAY ==
--- NOTE | 2021-01-29 13:39 | STRESSREP_ITS ---
Stress Test Report Date: 01/28/2021 Procedure: Exercise tolerance test Indications: Chest pain Consent: Per the patient Procedure: The patient exercised on a Tom protocol for 10 minutes and 31 seconds achieving a peak heart rate of 166 bpm (98% predicted maximal heart rate) with a peak blood pressure 158/96 mmHg and a peak MET capacity of approximately 13.7 MET's. The baseline ECG demonstrated normal sinus rhythm. The peak exercise ECG demonstrated sinus tachycardia with no significant ischemic changes. [There were no cardiac dysrhythmias pretest, during exercise, or recovery]. The functional capacity was considered excellent for age. The patient had no complaint of chest discomfort during exercise or recovery. The examination was discontinued secondary to leg fatigue. Impression: 1. Technically adequate (percent predicted maximal heart rate greater than 85%) exercise tolerance test 2. Stress test is negative for exercise-induced chest pain. 3. Stress test test is negative for exercise-induced EKG changes of ischemia. 4. Functional capacity is excellent for age This note was generated with [employer] software. It may contain incorrect words, spelling, and punctuation that were not noted in checking the note before signing.
== END ==
PROVIDERS: PCP Family Medicine; Referring Provider Physician Assistant; Visit Provider Physician Assistant
DX: R07.9 Chest pain, unspecified (principal); R94.31 Abnormal electrocardiogram [ECG] [EKG]
CPT/HCPCS: 93017

== ENCOUNTER → 2021-11-15 | Outpatient (CLI) | payer OTHER, SELFPAY ==
[2021-11-15 15:03] LABS: Absolute Neutrophil Count 3.7 X10^3/uL (2.0-7.7); Basophil# 0.05 X10^3/uL; Basophil% 0.7 % (0-1); Eosinophil# 0.06 X10^3/uL; Eosinophils% 0.9 % (0-5); Hematocrit 46.8 % (40-54); Hemoglobin 16.4 g/dL (13.0-16.5); Lymphocyte % 32.8 % (19-41); Mean Corpuscular Hgb 32.4 pg (27.0-32.0); Mean Corpuscular Volume 92.5 fL (80-94); Mean Platelet Vol. 10.4 fl (6.2-12.0); Monocyte# 0.87 X10^3/uL; Monocyte% 12.4 % (0-10); NRBC Flagged by Analyzer 0 % (0-5); Neutrophil # 3.73 X10^3/uL (2.7-7.7); Neutrophil % 53.1 % (47-70); Platelet Count 245 K/mm3 (150-450); RBC Distribution Width CV 12.1 % (11.6-14.6); RBC Distribution Width SD 41.5 fl (35.1-43.9); Red Blood Count 5.06 M/mm3 (4.6-6.2)
[2021-11-15 15:29] LABS: AST(SGOT) 24 U/L (15-37); Alanine Aminotransfer ALT/SGPT 47 U/L (16-61); Albumin, Serum 3.8 g/dL (3.2-5.0); Alkaline Phosphatase 78 U/L (45-117); Anion Gap 5 (5-15); BUN 14 mg/dL (7-18); BUN/Creat Ratio 15.7 RATIO (10-20); Chloride 104 mmol/L (98-107); Creatinine, Serum 0.89 mg/dL (0.70-1.30); EST Glomerular Filtration Rate 95 mL/min (>60); Est Glom Filt Rate - Afr Amer 115 mL/min (>60); Globulin 3.7 g/dL (2.2-4.2); Glucose 89 mg/dL (74-106); Potassium 4.3 mmol/L (3.5-5.1); Protein, Total 7.5 g/dL (6.4-8.2); Sodium Level 138 mmol/L (136-145)
== END | disposition home or self-care (01) ==
LOC: BIMLAB 13:40
PROVIDERS: PCP Family Medicine; Referring Provider Physician Assistant; Visit Provider Physician Assistant
DX: U07.1 COVID-19 (principal); I10 Essential (primary) hypertension; R05.9 Cough, unspecified
CPT/HCPCS: 36415; 80053; 85025; 87635; U0003; U0005

== ENCOUNTER → 2022-01-26 | Outpatient (CLI) | payer OTHER, SELFPAY ==
--- NOTE | 2022-01-26 08:55 | RAD_ITS ---
INDICATION: wrist injury EXAMINATION/TECHNIQUE: X-RAY - LEFT XR Wrist Min 3 Views 3 VIEWS COMPARISON: None. FINDINGS: SOFT TISSUES: No soft tissue swelling or gas. No radiopaque foreign body. BONES/JOINTS: No acute fracture. Preservation of the joint spaces. No sclerotic or destructive changes observed. RAD/Wrist min 3 Views IMPRESSION: No acute bony abnormality. Electronically Signed: Brian Dougherty MD at 23:16 EDT ,
== END | disposition home or self-care (01) ==
PROVIDERS: PCP Family Medicine; Referring Provider Nurse Practitioner Family; Visit Provider Nurse Practitioner Family
DX: S69.92XA Unspecified injury of left wrist, hand and finger(s), initial encounter (principal)
CPT/HCPCS: 73110

== ENCOUNTER → 2022-10-03 | Outpatient (CLI) | payer OTHER, SELFPAY ==
[2022-10-03 15:36] LABS: Absolute Lymphocyte Count 1.25 X10^3/uL (0.83-4.51); Absolute Neutrophil Count 14.4 X10^3/uL (2.0-7.7); Basophil# 0.03 X10^3/uL; Basophil% 0.2 % (0-1); Eosinophil# 0.02 X10^3/uL; Eosinophils% 0.1 % (0-5); Hematocrit 45.8 % (40-54); Hemoglobin 15.9 g/dL (13.0-16.5); Lymphocyte # 1.25 X10^3/ul (0.83-4.51); Lymphocyte % 7.6 % (19-41); Mean Corp Hgb Conc 34.7 g/dL (32-36); Mean Corpuscular Hgb 32.1 pg (27.0-32.0); Mean Corpuscular Volume 92.5 fL (80-94); Mean Platelet Vol. 9.9 fl (6.2-12.0); Monocyte# 0.62 X10^3/uL; Monocyte% 3.8 % (0-10); NRBC Flagged by Analyzer 0 % (0-5); Neutrophil # 14.38 X10^3/uL (2.7-7.7); Neutrophil % 87.4 % (47-70); Platelet Count 283 K/mm3 (150-450); RBC Distribution Width CV 12.7 % (11.6-14.6); RBC Distribution Width SD 43.1 fl (35.1-43.9); Red Blood Count 4.95 M/mm3 (4.6-6.2); White Blood Count 16.4 K/mm3 (4.4-11.0)
[2022-10-03 15:52] LABS: AST(SGOT) 18 U/L (15-37); Alanine Aminotransfer ALT/SGPT 43 U/L (16-61); Albumin, Serum 3.1 g/dL (3.2-5.0); Alkaline Phosphatase 66 U/L (45-117); Anion Gap 6 (5-15); BUN 17 mg/dL (7-18); BUN/Creat Ratio 12.9 RATIO (10-20); Calcium,Total 8.7 mg/dL (8.5-10.1); Chloride 106 mmol/L (98-107); Cholesterol 162 mg/dL (200); Creatinine, Serum 1.32 mg/dL (0.70-1.30); EST Glomerular Filtration Rate 60 mL/min (>60); Est Glom Filt Rate - Afr Amer 73 mL/min (>60); Glucose 114 mg/dL (74-106); High Density Lipoprotein 52 mg/dL; Protein, Total 6.1 g/dL (6.4-8.2); Sodium Level 139 mmol/L (136-145); Triglycerides 259 mg/dL; Very Low Density Lipoprotein 52 mg/dL (5-40)
== END | disposition home or self-care (01) ==
LOC: BIMLAB 13:51
PROVIDERS: PCP Family Medicine; Referring Provider Family Medicine; Visit Provider Family Medicine
DX: I10 Essential (primary) hypertension (principal)
CPT/HCPCS: 36415; 80053; 80061; 85025

== ENCOUNTER → 2022-10-31 | Outpatient (CLI) | payer OTHER, SELFPAY ==
[2022-10-31 15:17] LABS: Absolute Lymphocyte Count 2.85 X10^3/uL (0.83-4.51); Absolute Neutrophil Count 3.7 X10^3/uL (2.0-7.7); Basophil# 0.06 X10^3/uL; Basophil% 0.8 % (0-1); Eosinophil# 0.09 X10^3/uL; Eosinophils% 1.2 % (0-5); Hematocrit 44.1 % (40-54); Hemoglobin 14.7 g/dL (13.0-16.5); Lymphocyte # 2.85 X10^3/ul (0.83-4.51); Lymphocyte % 38.8 % (19-41); Mean Corp Hgb Conc 33.3 g/dL (32-36); Mean Corpuscular Hgb 31.6 pg (27.0-32.0); Mean Corpuscular Volume 94.8 fL (80-94); Mean Platelet Vol. 10.4 fl (6.2-12.0); Monocyte# 0.59 X10^3/uL; NRBC Flagged by Analyzer 0 % (0-5); Neutrophil # 3.72 X10^3/uL (2.7-7.7); Neutrophil % 50.7 % (47-70); Platelet Count 351 K/mm3 (150-450); RBC Distribution Width CV 12.5 % (11.6-14.6); Red Blood Count 4.65 M/mm3 (4.6-6.2); White Blood Count 7.4 K/mm3 (4.4-11.0)
== END | disposition home or self-care (01) ==
LOC: BIMLAB 11:53
PROVIDERS: PCP Family Medicine; Referring Provider Family Medicine; Visit Provider Family Medicine
DX: D72.9 Disorder of white blood cells, unspecified (principal)
CPT/HCPCS: 36415; 85025

== ENCOUNTER → 2022-11-21 | Outpatient (CLI) | payer OTHER, SELFPAY ==
--- NOTE | 2022-11-21 15:28 | MRI_ITS ---
INDICATION: SUDDEN HEARING LOSS,left EXAMINATION: MRI - MR Brain WO/W Contrast TECHNIQUE: Multiplanar and multisequence MR images of the brain were obtained without and with gadolinium. IV Contrast Dosage and Agent: IV clariscan 20ml COMPARISON: Apr 22 2020 FINDINGS: BRAIN PARENCHYMA: No MRI evidence of hemorrhage. No evidence of acute infarct. There is a left frontal extra-axial mass measures 17 x 18 x 14 mm demonstrating homogeneous enhancement most likely represents a meningioma. There is preservation of the eisenberg/white matter interface. Normal sella turcica, pituitary gland, infundibular stalk, optic chiasm and hypothalamus. Posterior fossa structures are unremarkable. INTERNAL AUDITORY CANALS: The internal auditory canals are well visualized and patent. No mass identified. CSF SPACES: Appropriate for age. No hydrocephalus. Basal cisterns are patent. VASCULAR SYSTEM: Normal flow voids in the major intracranial circulation. CALVARIUM, SKULL BASE, PARANASAL SINUSES AND MASTOID AIR CELLS: Clear. No expansile changes. ORBITS: Both globes, extraocular muscles, optic nerves and retrobulbar fat appear unremarkable. MRI/Brain W/WO Contrast IMPRESSION: There is a left frontal extra-axial mass measures 17 x 18 x 14 mm demonstrating homogeneous enhancement most likely represents a meningioma. Electronically Signed: Suraj Barber MD at 6:34 EDT ,
== END | disposition home or self-care (01) ==
LOC: MRI 15:13
PROVIDERS: PCP Family Medicine; Referring Provider Otolaryngology; Visit Provider Otolaryngology
DX: H91.22 Sudden idiopathic hearing loss, left ear (principal); H93.12 Tinnitus, left ear
CPT/HCPCS: 70553; A9575

== ENCOUNTER → 2023-01-16 | Outpatient (CLI) | payer OTHER, SELFPAY ==
--- NOTE | 2023-01-16 13:09 | CT_ITS ---
STUDY: CT FACIAL BONES WITHOUT CONTRAST REASON FOR EXAM: Male, 52 years old. CHRONIC SINUSITIS. Left-sided loss of hearing. RADIATION DOSAGE (If Supplied By Facility): CTDIvol = ( 33.06 ) mGy, DLP = ( 792.53 ) mGycm TECHNIQUE: The patient was scanned in a multi detector CT scanner. Sagittal and coronal images were reconstructed. Individualized dose optimization techniques were used for this CT. COMPARISON: None. FINDINGS: Normal soft tissue structures. Normal orbital jung and orbital contents. Normal nasal bones and anterior nasal spine. Normal facial bones. There is no demonstrated fracture. Normal visualized paranasal sinuses. CT/Sinus/Facial Bone IMPRESSION: Normal unenhanced CT of the facial bones. Electronically Signed: Gautam Henderson MD at 14:33 EDT ,
== END | disposition home or self-care (01) ==
LOC: CT 13:08
PROVIDERS: PCP Family Medicine; Referring Provider Otolaryngology; Visit Provider Otolaryngology
DX: J32.9 Chronic sinusitis, unspecified (principal)
CPT/HCPCS: 70486

== ENCOUNTER → 2023-05-31 | Outpatient (CLI) | payer OTHER, SELFPAY ==
[2023-05-31 16:57] LABS: Absolute Lymphocyte Count 3.07 X10^3/uL (0.83-4.51); Absolute Neutrophil Count 5.2 X10^3/uL (2.0-7.7); Basophil# 0.08 X10^3/uL; Basophil% 0.9 % (0-1); Eosinophil# 0.15 X10^3/uL; Eosinophils% 1.6 % (0-5); Hematocrit 46.2 % (40-54); Hemoglobin 15.6 g/dL (13.0-16.5); Lymphocyte # 3.07 X10^3/ul (0.83-4.51); Mean Corp Hgb Conc 33.8 g/dL (32-36); Mean Corpuscular Volume 91.8 fL (80-94); Mean Platelet Vol. 10.1 fl (6.2-12.0); Monocyte# 0.72 X10^3/uL; Monocyte% 7.8 % (0-10); NRBC Flagged by Analyzer 0 % (0-5); Neutrophil # 5.24 X10^3/uL (2.7-7.7); Neutrophil % 56.4 % (47-70); Platelet Count 289 K/mm3 (150-450); RBC Distribution Width CV 12.6 % (11.6-14.6); RBC Distribution Width SD 42.2 fl (35.1-43.9); Red Blood Count 5.03 M/mm3 (4.6-6.2); White Blood Count 9.3 K/mm3 (4.4-11.0)
[2023-05-31 17:14] LABS: Hemoglobin A1c 5.1 % (3.8-5.6)
[2023-05-31 17:15] LABS: ALB/GLOB Ratio 1.1 RATIO (0.9-2.4); AST(SGOT) 17 U/L (15-37); Alanine Aminotransfer ALT/SGPT 37 U/L (16-61); Albumin, Serum 3.7 g/dL (3.2-5.0); Alkaline Phosphatase 74 U/L (45-117); Anion Gap 3 (5-15); BUN 12 mg/dL (7-18); BUN/Creat Ratio 13.3 RATIO (10-20); Calcium,Total 9.2 mg/dL (8.5-10.1); Chloride 107 mmol/L (98-107); EST Glomerular Filtration Rate 94 mL/min (>60); Est Glom Filt Rate - Afr Amer 113 mL/min (>60); Globulin 3.4 g/dL (2.2-4.2); Glucose 75 mg/dL (74-106); Potassium 4.7 mmol/L (3.5-5.1); Protein, Total 7.1 g/dL (6.4-8.2); Sodium Level 141 mmol/L (136-145); T4 Free Direct 0.76 ng/dL (0.76-1.46); Thyroid Stim Hormone (TSH) 1.32 uIU/mL (0.358-3.74)
== END | disposition home or self-care (01) ==
LOC: BIMLAB 15:22
PROVIDERS: PCP Family Medicine; Visit Provider Family Medicine
DX: R53.83 Other fatigue (principal)
CPT/HCPCS: 36415; 80053; 83036; 84439; 84443; 85025

== ENCOUNTER 2024-06-09 05:08 | Emergency (ER) | payer OTHER, SELFPAY ==
[2024-06-09 05:10] VITALS: BP 163/97; PULSE 75; RESP 16; TEMP 36.6; O2SAT 98; BMI 33.2
[2024-06-09 05:15] VITALS: BP 163/97; PULSE 84; RESP 16; O2SAT 97
--- NOTE | 2024-06-09 05:32 | CT_ITS ---
PROCEDURE: CTA HEAD AND NECK W/ CONTRAST REASON FOR EXAM: HEAD AND NECK PAIN TECHNIQUE: Noncontrast head CT, CTA of the head and neck with coronal and sagittal and MIP reformatted images 3D reconstructions. IV CONTRAST: 100 cc Isovue 370 COMPARISON: None. FINDINGS: No intracranial hemorrhage or CT evidence of acute infarct. The ventricles are within limits and midline. The eisenberg-white differentiation appears preserved. 1.7 cm slightly high density compared to cortical eisenberg matter left convexity extra-axial lesion for example axial 41 likely meningioma. Not significantly changed since MRI of 11/21/2022. Bilateral small to moderate air-fluid levels in the maxillary sinuses, frothy on the left with mild mucoperiosteal thickening and small fluid level right sphenoid sinus. A few partially opacified anterior right ethmoid air cells. The mastoids and orbits appear within limits. CTA head: No vessel cut off, flow significant stenosis or aneurysm identified. The [id number] appears intact. Basilar, posterior cerebral, middle cerebral and anterior cerebral arteries appear intact. Major dural venous sinuses appear intact. CTA neck: Approximately 4 cm from the origin of the left internal carotid artery is an abnormal focal widening and irregularity of the artery followed by near 2 cm segment of significant luminal narrowing 70-80% overall concerning for a focal area of dissection. The left internal carotid artery returns to a normal caliber then from the skull base along its horizontal and vertical segments. Thoracic aortic arch appears within limits. Right brachiocephalic, right subclavian and left subclavian arteries appear within limits. Bilateral common carotid arteries appear within limits. Codominant cervical vertebral arteries are intact. Bilateral carotid bulbs appear widely patent and intact. The right internal and external carotid arteries are intact. Visualized apices are clear. C5-[address]/CTA Head AND Neck W/ Contrast IMPRESSION: No intracranial hemorrhage or CT evidence of acute infarct. 1.7 cm slightly high density compared to cortical eisenberg matter left convexity ex tra-axial lesion for example axial 41 likely meningioma. Not significantly changed since MRI of 11/21/2022. Paranasal sinusitis as above. Approximately 4 cm from the origin of the left internal carotid artery is an ab normal focal widening and irregularity of the artery followed by near 2 cm segment of significant luminal narrowing 70-80% ov erall concerning for a focal area of dissection. The left internal carotid artery returns to a normal caliber then from the skul l base along its horizontal and vertical segments. Findings discussed by myself verbally by phone to Dr. Perera at 6:35 a.m. 06/09 One or more dose reduction techniques were used (e.g., Automated exposure contr ol, adjustment of the mA and/or kV according to patient size, use of iterative reconstruction technique). Reading Location: [id number]
--- NOTE | 2024-06-09 05:36 | EX.ED.VIS.HA ---
HPI History of Present Illness Chief Complaint: Headache Informant: patient Narrative Narrative: 53-year-old male presenting to the emergency room with a chief complaint of head and neck pain. Patient states he recently traveled on a cruise in the [place]. When he returned home he became ill with what he describes as a sinus infection and cough. He has been on Augmentin. Denies any fevers. States that over the past couple days he has had pain in the left side of his posterior neck along the left side of his head. He denies any rashes. States this started as a tingling and his progress will be worsened. He denies any arm leg or speech issues. He does not suffer from migraines. Notes he has a history of hypertension but is not currently under any specific treatment other than [id number] magnesium. He notes that his blood pressures have typically been around 140 and 150 systolic. He denies fever. He denies any ear pain and notes chronic tinnitus in the left ear and also states that he is losing his hearing in that ear which has been an ongoing issue. [facility] Medical History Acute maxillary sinusitis, unspecified Need for Tdap vaccination Home Medications ?Medication ?Instructions ?Recorded ?Last Taken ?Type multivitamin (Daily Multi-Vitamin 1 tab PO DAILY supplement 04/08/20 04/21/20 08:00 History tablet) Allergy/AdvReac Type Severity Reaction Status Date / Time No Known Allergies Allergy Verified 06/09/24 05:08 Family History Uncle Colon cancer Aunt Cancer eye cancer Father Hypertension Mother Hypertension Surgical History History of colonoscopy H/O knee surgery Social History Smoking Status: Never smoker alcohol intake: former substance use type: does not use ROS ROS ED Constitutional Constitutional ED: Denies chills, fever(s) or weight loss Eyes Eyes: Denies change in vision or diplopia ENT ENT ED: Reports rhinorrhea; Denies ear pain or sore throat Cardiovascular Cardiovascular: Denies chest pain, orthopnea, palpitations or racing heartbeat Respiratory/Chest Respiratory/Chest: Reports cough; Denies dyspnea or orthopnea Gastrointestinal Gastrointestinal: Denies abdominal pain, diarrhea, nausea or vomiting Genitourinary Genitourinary ED: Denies dysuria, hematuria or urinary frequency Musculoskeletal Musculoskeletal: Reports neck pain; Denies arthralgias, back pain or myalgias Integumentary Denies abscess or rash Neurologic Neurologic: Reports headache(s); Denies paresthesias or weakness Psychiatric Psychiatric: Denies anxiety, depression, suicidal ideation or suicidal thoughts Endocrine Endocrinology: Denies polydipsia, polyphagia or polyuria Allergic/Immunologic Allergic/Immunologic ED: Denies mouth swelling, tongue swelling or urticaria EXAM Physical Exam Const Vital Signs: 06/09/24 05:10 06/09/24 05:15 06/09/24 07:00 Temperature 97.9 F Temperature Source Oral Pulse Rate 75 84 89 Respiratory Rate 16 16 16 Blood Pressure 163/97 H 163/97 H 168/100 H Blood Pressure Mean 119 119 122 Pulse Ox 98 97 97 Oxygen Delivery Method Room Air Room Air Room Air Positive well nourished and well developed General Appearance ED: well developed HEENT Reports normocephalic, head/scalp atraumatic and moist mucous membranes HEENT Narrative: I do not see any vesicular rash Eyes PERRL and EOMs intact bilaterally Neck no lymphadenopathy, supple and no JVD Resp normal respiratory effort and clear to auscultation bilaterally Cardio regular rate, regular rhythm and no murmurs GI normal to inspection, nondistended, normoactive bowel sounds and non-tender Palpation: soft Back/Spine no CVA tenderness and normal ROM Extremity normal to inspection General Extremety ED: Negative for edema General Extremity: Negative for edema Neuro oriented x3 and CN's II-XII intact bilaterally Neuro Narrative: NIH is 0 Sensorium / Orientation: alert Speech: speech normal Gait (Neuro): normal gait Motor Exam: strength 5/5 throughout Psych mental status grossly normal Mood & Affect: Negative for depressed or tearful Skin no rashes or lesions noted and no wounds MDM MDM MDM Narrative Medical decision making narrative: Differential diagnosis includes but not limited to headache sinusitis carotid artery dissection aneurysm intracranial hemorrhage hematoma malignancy cervical myofascial strain viral syndrome hypertension White count 8.0 hemoglobin 17.3 platelet count of 313. Glucose 103 creatinine 0.82 normal LFTs. CTA of the head and neck was obtained. This was read by radiology and reviewed by myself. There is a focal area of carotid artery dissection with narrowing of the lumen by 70 to 80%. Patient received morphine and hydralazine for blood pressure. He has seen [facility] for meningioma so I initiated contact with the transfer center at [facility]. History & Record Review Discussion w/independent historian: Patient Lab Data Attestation: I reviewed the patient's lab results. Labs: Laboratory Results - last 24 hr 06/09/24 05:46 WBC 8.0 RBC 5.60 Hgb 17.3 H Hct 50.0 MCV 89.3 MCH 30.9 MCHC 34.6 RDW Std Deviation 39.7 RDW Coeff of Cameron 12.0 Plt Count 313 MPV 9.6 Immature Gran % (Auto) 0.400 Neut % (Auto) 55.8 Lymph % (Auto) 35.6 Saunders % (Auto) 6.6 Eos % (Auto) 0.8 Baso % (Auto) 0.8 Absolute Neuts (auto) 4.5 Absolute Lymphs (auto) 2.84 Nucleated RBC % 0 Sodium 139 Potassium 3.9 Chloride 103 Carbon Dioxide 23.7 Anion Gap 12 BUN 15 Creatinine 0.82 Estim Creat Clear Calc 125.04 Est GFR (MDRD) Non-Af 104 BUN/Creatinine Ratio 18.6 Glucose 103 H Calcium 9.0 Total Bilirubin 0.74 AST 23 ALT 29 Alkaline Phosphatase 69 Total Protein 6.9 Albumin 4.3 Globulin 2.5 Albumin/Globulin Ratio 1.7 Radiography Diagnostic Testing: Clinical Impression(s) from Imaging Studies Head/Neck CTA 06/09/24 05:32 IMPRESSION: No intracranial hemorrhage or CT evidence of acute infarct. 1.7 cm slightly high density compared to cortical eisenberg matter left convexity extra-axial lesion for example axial 41 likely meningioma. Not significantly changed since MRI of 11/21/2022. Paranasal sinusitis as above. Approximately 4 cm from the origin of the left internal carotid artery is an abnormal focal widening and irregularity of the artery followed by near 2 cm segment of significant luminal narrowing 70-80% overall concerning for a focal area of dissection. The left internal carotid artery returns to a normal caliber then from the skull base along its horizontal and vertical segments. Findings discussed by myself verbally by phone to Dr. Perera at 6:35 a.m. 06/09/2024 One or more dose reduction techniques were used (e.g., Automated exposure control, adjustment of the mA and/or kV according to patient size, use of iterative reconstruction technique). Reading Location: [id number] Management Discussion w/another healthcare provider: News Commentator and Radiologist Critical Care Time Critical Care Time: Yes Critical care time (excluding procedures): 30-74 minutes (35 min), Including time spent:, Discussing w/Patient &/or Family/Dining Room Tables Set Up Attendant, Discussing w/Consultants, Arranging Admission or Transfer and Performing Direct Patient Care at Bedside Discharge Plan Triage Chief Complaint: Headache ED Provider: Oh Perera Dx/Rx/DC Orders Clinical Impression: Internal carotid artery dissection, Hypertension, Headache Prescriptions: No Action multivitamin [Daily Multi-Vitamin] Tablet 1 tab PO DAILY Primary Care Provider: Shay Clark Referrals: Shay Clark, DO [Primary Care Provider] - Print Language: Swazi Disposition Disposition: Acute Care Hospital Discharge Location: [facility]
[2024-06-09 05:52] LABS: Absolute Lymphocyte Count 2.84 X10^3/uL (0.83-4.51); Absolute Neutrophil Count 4.5 X10^3/uL (2.0-7.7); Basophil# 0.06 X10^3/uL; Basophil% 0.8 % (0-1); Eosinophil# 0.06 X10^3/uL; Eosinophils% 0.8 % (0-5); Hemoglobin 17.3 g/dL (13.0-16.5); Lymphocyte # 2.84 X10^3/ul (0.83-4.51); Lymphocyte % 35.6 % (19-41); Mean Corp Hgb Conc 34.6 g/dL (32-36); Mean Corpuscular Hgb 30.9 pg (27.0-32.0); Mean Corpuscular Volume 89.3 fL (80-94); Mean Platelet Vol. 9.6 fl (6.2-12.0); Monocyte# 0.53 X10^3/uL; Monocyte% 6.6 % (0-10); NRBC Flagged by Analyzer 0 % (0-5); Neutrophil # 4.45 X10^3/uL (2.7-7.7); Neutrophil % 55.8 % (47-70); Platelet Count 313 K/mm3 (150-450); RBC Distribution Width SD 39.7 fl (35.1-43.9)
[2024-06-09 06:51] LABS: ALB/GLOB Ratio 1.7 RATIO (0.9-2.4); AST(SGOT) 23 U/L (<=37); Alanine Aminotransfer ALT/SGPT 29 U/L (<=46); Albumin, Serum 4.3 g/dL (3.5-5.0); Alkaline Phosphatase 69 U/L (40-129); Anion Gap 12 (5-15); BUN 15 mg/dL (4-19); BUN/Creat Ratio 18.6 RATIO (10-20); Carbon Dioxide 23.7 mmol/L (21.0-32.0); Chloride 103 mmol/L (98-108); Creatinine, Serum 0.82 mg/dL (0.70-1.20); EST Glomerular Filtration Rate 104 (>60); Estimated Creatinine Clearance 125.04 ml/min (50-250); Globulin 2.5 g/dL (2.2-4.2); Glucose 103 mg/dL (70-99); Potassium 3.9 mmol/L (3.3-5.1); Protein, Total 6.9 g/dL (5.9-8.4); Sodium Level 139 mmol/L (133-145); Total Bilirubin 0.74 mg/dL (0.00-1.30)
[2024-06-09 07:00] VITALS: BP 168/100; PULSE 89; RESP 16; O2SAT 97
[2024-06-09] MEDS: Ondansetron 4 MG/2 ML Vial IV (07:06)
[2024-06-09] MEDS: Morphine 4 MG/ML Syringe IV (07:06)
[2024-06-09] MEDS: hydrALAZINE 20 MG/ML Vial 10 MG IV (07:12)
[2024-06-09 07:30] VITALS: BP 137/92; PULSE 74
--- NOTE | 2024-06-09 07:37 | ED.RN ---
ACCEPTED AT [facility] @ 0700, WAITING ON A BED.
[2024-06-09] MEDS: HEPARIN/D5w 25,000 UNITS 25,000 UNITS/250 ML IV.SOLN. 15 UNITS CONT INF (07:39)
--- NOTE | 2024-06-09 07:52 | ED.RN ---
CASE TRANSFERRED TO [facility]?
[2024-06-09 08:01] VITALS: BP 158/84; PULSE 69; RESP 18; O2SAT 97
[2024-06-09] MEDS: Aspirin 325 MG Tablet PO (08:21)
--- NOTE | 2024-06-09 08:31 | ED.RN ---
[facility] TO [id number] ETA FOR PICKUP IS [phone]
[2024-06-09 08:49] LABS: International Normalized Ratio 0.9; Prothrombin Time (Protime)PT. 12.3 SECONDS (11.7-14.9)
[2024-06-09 08:50] LABS: Partial Thromboplast Time 29.1 Seconds (24.1-36.2)
[2024-06-09 10:00] VITALS: BP 147/91; PULSE 69; RESP 16; TEMP 36.8; O2SAT 98
== END 2024-06-09 10:15 | disposition short-term general hospital (02) ==
PROVIDERS: Emergency Provider Emergency Medicine; PCP Family Medicine; Visit Provider Emergency Medicine
DX: I77.71 Dissection of carotid artery (principal); I10 Essential (primary) hypertension; H93.12 Tinnitus, left ear
CPT/HCPCS: 70496; 70498; 80053; 85025; 85610; 85730; 96365; 96375; 99285; Q9967; A4216; J2405

== ENCOUNTER 2024-06-14 09:32 | Emergency (ER) | payer OTHER, SELFPAY ==
[2024-06-14 09:33] VITALS: BP 152/100; PULSE 118; RESP 18; TEMP 36.2; O2SAT 98; BMI 33.0
--- NOTE | 2024-06-14 09:59 | EDS_ITS ---
HPI History of Present Illness Chief Complaint: Edema Informant: patient and spouse/S.O. Narrative Narrative: 53-year-old male presenting with swollen tongue for the past 2 days, now today is day #3. States he was just discharged 2 days ago from [facility] After being transferred there because of a nontraumatic left carotid artery dissection. He states while in the hospital they started him on lisinopril, no other blood pressure medications, and he was on no blood pressure medications prior to that. The patient states that the vascular surgeon did not think he needed surgery or a stent and wanted to treat him as an outpatient medically with aspirin and blood pressure control, trying to keep his systolic blood pressure under 140. Patient states that he was on lisinopril long ago but discontinued it because he had a cough as a result. He starting to get that again. He denies any trouble breathing or swallowing with regards to the tongue swelling, he states it has been stable throughout the day yesterday and this morning, and he did not take his lisinopril yet this morning. He is still having some left-sided neck pain that had started before he presented to this hospital and was diagnosed with a carotid dissection, and he denies having any neurologic symptoms or any other new symptoms other than the tongue swelling, except for a little bit of slurring speech due to the swelling of the tongue. [facility] Medical History Psoriasis Benign meningioma Hypertension Internal carotid artery dissection Acute maxillary sinusitis, unspecified Need for Tdap vaccination Home Medications ?Medication ?Instructions ?Recorded ?Last Taken ?Type multivitamin (Daily Multi-Vitamin 1 tab PO DAILY suppl ement 04/08/20 04/21/20 08:00 History tablet) amlodipine 10 mg tablet 10 mg PO DAILY #30 tabs 05/26 04/20 Unknown Rx Allergy/AdvReac Type Severity Reaction Status Date / Time lisinopril Allergy Severe Angioedema Verified 06/14/24 10:07 Family History Uncle Colon cancer Aunt Cancer eye cancer Father Hypertension Mother Hypertension Surgical History History of colonoscopy H/O knee surgery Social History Smoking Status: Never smoker alcohol intake: former substance use type: does not use ROS ROS ED Constitutional Constitutional ED: Denies chills or fever(s) Eyes Eyes: Denies change in vision or diplopia ENT ENT ED: Reports as per HPI and tongue swelling; Denies disequillibrium, dizziness, dysphagia, rhinorrhea, sore throat or throat swelling Cardiovascular Cardiovascular: Denies chest pain or palpitations Respiratory/Chest Respiratory/Chest: Denies cough or dyspnea Gastrointestinal Gastrointestinal: Denies abdominal pain, diarrhea, nausea or vomiting Genitourinary Genitourinary ED: Denies dysuria or hematuria Musculoskeletal Musculoskeletal: Reports neck pain; Denies back pain Integumentary Denies abscess or rash Neurologic Neurologic: Denies headache(s), paresthesias or weakness Psychiatric Psychiatric: Denies anxiety or suicidal thoughts EXAM Physical Exam Const Vital Signs: 06/14/24 09:33 06/14/24 10:50 Temperature 97.1 F L Temperature Source Temporal Pulse Rate 118 H 96 Respiratory Rate 18 18 Blood Pressure 152/100 H 158/102 H Blood Pressure Mean 117 120 Pulse Ox 98 97 Oxygen Delivery Method Room Air Positive well nourished and well developed General Appearance ED: well developed and NAD HEENT Reports moist mucous membranes HEENT Narrative: Or tongue is swollen consistent with asymmetric angioedema. There is no trismus. He can elevate his tongue from his sublingual tissues which are unr emarkable. There is no lip involvement. He has no stridor. He has some mild dysarthria but is able to converse in full sentences without any difficulty, while reclined. normocephalic and atraumatic Eyes PERRL and EOMs intact bilaterally Neck full ROM and supple Neck Narrative: No carotid bruits heard. Resp normal respiratory effort Back/Spine General Back: other FROM Extremity normal to inspection General Extremety ED: Negative for edema, pulses abnormal or tenderness General Extremity: Negative for edema or pulses abnormal Neuro oriented x3, CN's II-XII intact bilaterally and no sensory deficits noted Sensorium / Orientation: awake and alert Motor Exam: strength 5/5 throughout Psych mental status grossly normal Skin no rashes or lesions noted and no wounds MDM MDM MDM Narrative Medical decision making narrative: I agree with the patient that this is clearly related to him just starting lis inopril, until proven otherwise. Luckily he has not taken it again this morning. His blood pressure is 152/100. I want to replace his lisinopril with something else for blood pressure until he can follow-up, and looking at his discharge papers it is unclear who the vascular surgeon is that he saw. I discussed with the neurovascular specialist on-call at [facility] Where the patient was just discharged for recommendation for blood pressure medications that they prefer over others, as far as class. Discussed w/ Dr. Vogel, who prefers amlodipine 10mg daily as next option. Pt given initial dose of that in addition to clonidine for faster effect. 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 Print Language: Slovak Disposition Disposition: Home, Self Care
[2024-06-14 10:50] VITALS: BP 158/102; PULSE 96; RESP 18; O2SAT 97
[2024-06-14] MEDS: cloNIDine HCl 0.1 MG Tablet PO (10:59)
[2024-06-14 11:00] VITALS: BP 158/102; PULSE 68; RESP 16; O2SAT 97
[2024-06-14 11:31] VITALS: BP 144/89; PULSE 95; RESP 18; TEMP 36.2; O2SAT 97
[2024-06-14] MEDS: amLODIPine 10 MG Tablet PO (11:49)
== END 2024-06-14 11:52 | disposition home or self-care (01) ==
LOC: ED 10:17
PROVIDERS: Emergency Provider Emergency Medicine; PCP Family Medicine; Visit Provider Emergency Medicine
DX: T78.3XXA Angioneurotic edema, initial encounter (principal); T46.4X5A Adverse effect of angiotensin-converting-enzyme inhibitors, initial encounter; I10 Essential (primary) hypertension; I77.71 Dissection of carotid artery; Z79.899 Other long term (current) drug therapy
CPT/HCPCS: 99282

== ENCOUNTER 2024-08-26 16:30 | Outpatient (RCR) | payer OTHER, SELFPAY ==
--- NOTE | 2024-05-06 15:31 | HP.PTEVAL_ITS ---
Patient's Visit Information Visit Information Visit Information: ALO BALBUENA is a 53 year old M referred to Physical Therapy by Dr. Brendon Sandoval DO with a diagnosis of Pain in shoulder/Superior Glenoid Lesion. Date of Evaluation: 05/06/24 Physical Therapist: NANCI Boudreaux Visit Plan Frequency: 2-3x /Week Duration: 6 Weeks Plan: Pt reports that the Dr told him, he had a frozen shoulder now 2-3X/ week for 6 weeks for PROM of the L shoulder and progressing to AAROM/AROM, stretching, scapular strength with HEP HEP: Supine wand flex, ER and standing ABD, Doorway ER stretch Subjective Subjective: Pt hurt his L arm at work and has limitations of pulling it up into flexion (pain at approx 120 flex and approx 80 abduction). He injured it last year. He has not had any PT for it. He had an MRI of the L shoulder and injection put in it on 04/19. MRI showed labrum tear and frozen shoulder and no need for surgery. He reports that his L shoulder does feel better after the injection. He is R handed. He is not able to sleep on the L shoulder very long. 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 He generally does not have pain unless he gets to that certain overhead point. Pain L shoulder pain: Pain Intensity (Out of 10): 0 Objective Objective: R handed: L shoulder is protracted and pt sits with increase thoracic kyphosis R shoulder flex 160 and L 90 R shoulder ABD 180 and L 105 R shoulder IR T5 and L5 R shoulder ER 70 and L 50 UE MMT: R shoulder Flex 15.2 and L 14.2 R shoulder ABD 13.3 and L 10.9 R shoulder ER 15.7 and L 14.8 R shoulder IR 17.1 and L 17 PROM L shoulder... very tight at end ranges (flex, abd, and ER....and painful Balance/Special Test Scores Quick DASH Score: 18.1800 Goals Goal 1:: I HEP Goal Time Frame: 8-12 Weeks Goal 2:: Increase L shoulder AROM (at the time of the eval: R shoulder flex 160 and L 90 R shoulder ABD 180 and L 105 R shoulder IR T5 and L5 R shoulder ER 70 and L 50) Goal Time Frame: 8-12 Weeks Rehabilitation Potential Rehabilitation Potential: Good Anticipated Interventions Patient/Client Instruction: Educate patient on: Condition and Plan of Care For the Purpose of:: To decrease pain, To increase ROM, To improve nutrient delivery to tissue, To improve muscle performance and motor function, To improve ability to perform ADL's, To increase tolerance to activity/condition/position, To improve performance and independence with ADL's, To decrease level of supervision to perform tasks, To improve ability of physical actions for home/community/work/leisure, To improve gait and locomotor functions, To improve health of tissue and To increase flexibility/ROM Therapeutic Exercise to Include: Strength training, Postural training, Flexibilty training, Neuromotor development, Passive ROM, Active ROM and Scapular Strength/Stabilization For the Purpose of:: To decrease pain, To increase ROM, To improve nutrient delivery to tissue, To improve muscle performance and motor function, To improve ability to perform ADL's, To increase tolerance to activity/condition/position, To improve performance and independence with ADL's, To decrease level of supervision to perform tasks, To improve health of tissue, To decrease soft tissue restriction and To increase flexibility/ROM Manual Therapy Techniques to Include: Passive ROM and Soft tissue mobilization For the Purpose of:: To decrease pain, To increase ROM, To improve nutrient delivery to tissue, To improve muscle performance and motor function, To improve ability to perform ADL's, To increase tolerance to activity/condition/position, To improve health of tissue, To decrease soft tissue restriction and To increase flexibility/ROM IF ES: Yes Cryotherapy (ice pack, ice massage): Yes Thermo therapy (hot pack): Yes For the Purpose of:: To decrease pain, To increase ROM, To improve nutrient delivery to tissue, To improve muscle performance and motor function and To impr ove ability to perform ADL's Text: Thank you for the opportunity to evaluate your patient. For Medicare and Medicare HMO plans, please review the plan of care and approve it. It will need to be FAXED BACK to us at [phone] for Medicare purposes. For Medicare only, by signing this I certify the plan of care. Please let me know if there are questions or concerns regarding this plan of care. Physician Signature: Date:
--- NOTE | 2024-07-17 10:07 | HP.PT.NRP ---
Patient Information Patient Information: ALO BALBUENA was seen in my office for initial evaluation on 05/06/24. The following Plan of Care was established for this patient: POC Established Initial Frequency: 2-3x /Week Initial Duration: 6 Weeks Anticipated Interventions Patient/Client Instruction: Educate patient on: Condition and Plan of Care For the Purpose of:: To decrease pain, To increase ROM, To improve nutrient delivery to tissue, To improve muscle performance and motor function, To improve ability to perform ADL's, To increase tolerance to activity/condition/position, To improve performance and independence with ADL's, To decrease level of supervision to perform tasks, To improve ability of physical actions for home/community/work/leisure, To improve gait and locomotor functions, To improve health of tissue and To increase flexibility/ROM Therapeutic Exercise to Include: Strength training, Postural training, Flexibilty training, Neuromotor development, Passive ROM, Active ROM and Scapular Strength/Stabilization For the Purpose of:: To decrease pain, To increase ROM, To improve nutrient delivery to tissue, To improve muscle performance and motor function, To improve ability to perform ADL's, To increase tolerance to activity/condition/position, To improve performance and independence with ADL's, To decrease level of supervision to perform tasks, To improve health of tissue, To decrease soft tissue restriction and To increase flexibility/ROM Manual Therapy Techniques to Include: Passive ROM and Soft tissue mobilization For the Purpose of:: To decrease pain, To increase ROM, To improve nutrient delivery to tissue, To improve muscle performance and motor function, To improve ability to perform ADL's, To increase tolerance to activity/condition/position, To improve health of tissue, To decrease soft tissue restriction and To increase flexibility/ROM IF ES: Yes Cryotherapy (ice pack, ice massage): Yes Thermo therapy (hot pack): Yes For the Purpose of:: To decrease pain, To increase ROM, To improve nutrient delivery to tissue, To improve muscle performance and motor function and To improve ability to perform ADL's Last Seen Last Seen: This patient was last seen in our office 05/27/24. Pertinent comments regarding their Physical therapy will appear below: [facility] PT as pt has not rescheduled any additional visits At this point I will be discontinuing this patient from physical therapy. I would be happy to see this patient again in the future if found appropriate by the physician. Thank you! Amanda Stoner, MPT Balance/Gait/Functional tests Balance/Special Test Scores Quick DASH Score: 18.1800
--- NOTE | 2024-08-05 14:10 | HP.PTREVAL ---
Re-Evaluation Intro: Dr. Brendon Sandoval, DO, It has been my pleasure to treat ALO BALBUENA over the last 7 visits for L Pain in shoulder/Superior Glenoid Lesion. Please see the progress note below for an update on the physical therapy plan of care! Subjective Subjective: Pt reports that he had carotid artery dissection surgery and was in ICU. Pt shoulder has not been bad but he feels that he has lost some and it seems to be a lot tighter. He is no longer allowed to lift heavy for the rest of his life. He has pain when he lifts overhead. Dr said he would give him an injection if he is not getting better Objective Objective/Function: ROM still improved from eval: L shoulder AROM (at the time of the eval: R shoulder flex 160 and L 115 R shoulder ABD 180 and L 129 R shoulder IR T5 and L1 R shoulder ER 70 and L 45 Plan Plan Plan: Pt was in ICU and that is why there was a break in treatment. Pt is not allowed to heavy lift due to carotid dissection Pt reports that the Dr told him, he had a frozen shoulder now. 2-3X/ week for 6 weeks for PROM of the L shoulder and progressing to AAROM/AROM, stretching, scapular strength with HEP HEP: Supine wand flex, ER and standing ABD, Doorway ER stretch Balance/Gait/Functional tests Balance/Special Test Scores Quick DASH Score: 20.4525 Goals Goals Goal 1:: I HEP Goal Time Frame: 8-12 Weeks Goal Progress: Progressing Goal 2:: Increase L shoulder AROM (at the time of the eval: R shoulder flex 160 and L 90 R shoulder ABD 180 and L 105 R shoulder IR T5 and L5 R shoulder ER 70 and L 50) Goal Time Frame: 8-12 Weeks Goal Progress: Progressing Goal 3:: Decrease L shoulder pain with OH reaching/activities Goal Time Frame: 8-12 Weeks Anticipated Interventions Anticipated Interventions Patient/Client Instruction: Educate patient on: Condition and Plan of Care For the Purpose of:: To decrease pain, To increase ROM, To improve nutrient delivery to tissue, To improve muscle performance and motor function, To improve ability to perform ADL's, To increase tolerance to activity/condition/position, To improve performance and independence with ADL's, To decrease level of supervision to perform tasks, To improve ability of physical actions for home/community/work/leisure, To improve gait and locomotor functions, To improve health of tissue and To increase flexibility/ROM Therapeutic Exercise to Include: Strength training, Postural training, Flexibilty training, Neuromotor development, Passive ROM, Active ROM and Scapular Strength/Stabilization For the Purpose of:: To decrease pain, To increase ROM, To improve nutrient delivery to tissue, To improve muscle performance and motor function, To improve ability to perform ADL's, To increase tolerance to activity/condition/position, To improve performance and independence with ADL's, To decrease level of supervision to perform tasks, To improve health of tissue, To decrease soft tissue restriction and To increase flexibility/ROM Manual Therapy Techniques to Include: Passive ROM and Soft tissue mobilization For the Purpose of:: To decrease pain, To increase ROM, To improve nutrient delivery to tissue, To improve muscle performance and motor function, To improve ability to perform ADL's, To increase tolerance to activity/condition/position, To improve health of tissue, To decrease soft tissue restriction and To increase flexibility/ROM IF ES: Yes Cryotherapy (ice pack, ice massage): Yes Thermo therapy (hot pack): Yes For the Purpose of:: To decrease pain, To increase ROM, To improve nutrient delivery to tissue, To improve muscle performance and motor function and To improve ability to perform ADL's Re-Evaluation Ending Re-evaluation ending: Please do not hesitate to contact me at [phone] by phone or if you have questions or concerns regarding this new plan of care! Sincerely, Amanda Smith, MPT
--- NOTE | 2024-12-02 14:16 | HP.PT.NRP ---
Patient Information Patient Information: ALO BALBUENA was seen in my office for initial evaluation on 05/06/24. The following Plan of Care was established for this patient: POC Established Initial Frequency: 2-3x /Week Initial Duration: 6 Weeks Anticipated Interventions Patient/Client Instruction: Educate patient on: Condition and Plan of Care For the Purpose of:: To decrease pain, To increase ROM, To improve nutrient delivery to tissue, To improve muscle performance and motor function, To improve ability to perform ADL's, To increase tolerance to activity/condition/position, To improve performance and independence with ADL's, To decrease level of supervision to perform tasks, To improve ability of physical actions for home/community/work/leisure, To improve gait and locomotor functions, To improve health of tissue and To increase flexibility/ROM Therapeutic Exercise to Include: Strength training, Postural training, Flexibilty training, Neuromotor development, Passive ROM, Active ROM and Scapular Strength/Stabilization For the Purpose of:: To decrease pain, To increase ROM, To improve nutrient delivery to tissue, To improve muscle performance and motor function, To improve ability to perform ADL's, To increase tolerance to activity/condition/position, To improve performance and independence with ADL's, To decrease level of supervision to perform tasks, To improve health of tissue, To decrease soft tissue restriction and To increase flexibility/ROM Manual Therapy Techniques to Include: Passive ROM and Soft tissue mobilization For the Purpose of:: To decrease pain, To increase ROM, To improve nutrient delivery to tissue, To improve muscle performance and motor function, To improve ability to perform ADL's, To increase tolerance to activity/condition/position, To improve health of tissue, To decrease soft tissue restriction and To increase flexibility/ROM IF ES: Yes Cryotherapy (ice pack, ice massage): Yes Thermo therapy (hot pack): Yes For the Purpose of:: To decrease pain, To increase ROM, To improve nutrient delivery to tissue, To improve muscle performance and motor function and To improve ability to perform ADL's Last Seen Last Seen: This patient was last seen in our office 08/26/24. Pertinent comments regarding their Physical therapy will appear below: [facility] PT At this point I will be discontinuing this patient from physical therapy. I would be happy to see this patient again in the future if found appropriate by the physician. Thank you! Amanda Smith, NANCI Balance/Gait/Functional tests Balance/Special Test Scores Quick DASH Score: 20.4582
== END 2024-08-26 19:00 | disposition home or self-care (01) ==
LOC: PT 16:30
PROVIDERS: PCP Family Medicine; Referring Provider Orthopaedic Surgery; Visit Provider Orthopaedic Surgery
DX: S43.432D Superior glenoid labrum lesion of left shoulder, subsequent encounter (principal); M25.512 Pain in left shoulder
CPT/HCPCS: 97110; 97140; 97161; 97530